=== PATIENT | male | born 1965 | race Caucasian/White ===

== ENCOUNTER 2021-12-26 13:02 | Inpatient (IN) ==
[2021-12-26] MEDS ORDERED: Isovue-370 500 ML BOTTLE IVP ONE (13:11)
[2021-12-26 13:29] LABS: Hematocrit 48.1 % (37.5-50.1); Hemoglobin 16.9 g/dL (12.9-16.9); Mean Corpuscular HGB Conc 35.1 g/dL (31.6-35.5); Mean Corpuscular Hemoglobin 29.9 pg (28.0-33.3); Mean Platelet Volume 9.6 fL (9.4-12.4); Platelet Count 220 K/mcL (140-400); Red Blood Count 5.66 M/mcL (4.19-5.50); Red Cell Distribution Width 13.9 % (11.5-14.5); White Blood Count 8.4 K/mcL (4.3-11.1)
[2021-12-26 13:33] LABS: Prothrombin Time 11.2 Seconds (9.4-12.1)
[2021-12-26 13:36] LABS: Activated Partial Thrombo Time 34.6 Seconds (26.0-36.0)
[2021-12-26 13:54] LABS: BUN/Creatinine Ratio 21 (6-26); Blood Urea Nitrogen 24 mg/dL (6-20); Carbon Dioxide 24 mEq/L (23-29); Chloride 102 mEq/L (98-107); Ethanol < 10 mg/dL (Less than 10); Glucose 315 mg/dL (70-105); Osmolality,Calculated 298 (280-300); Potassium 3.4 mEq/L (3.5-5.1); Sodium 136 mEq/L (136-145); Troponin I 0.03 ng/mL (< 0.04); eGFR For African Americans > 60 (> 60); eGFR For Non-African Americans > 60 (> 60)
[2021-12-26 14:14] LABS: Bilirubin,Urine Negative (Negative); Blood,Urine Small (Negative); Clarity,Urine Clear (Clear); Color,Urine Light-Yellow (Yellow); Glucose,Urine (UA) >=1000 mg/dL (Normal); Ketones,Urine Negative (Negative); Leukocyte Esterase,Urine Negative (Negative); Nitrite,Urine Negative (Negative); PH,Urine 6.5 pH Units (5.0-8.0); Protein,Urine >=300 mg/dL (Neg-Trace); RBC,Urine 0-3 per hpf (0-3); Specific Gravity,Urine 1.027 (1.010-1.025); Urobilinogen,Urine Normal (Normal); WBC,Urine 0-3 per hpf (0-3)
[2021-12-26] MEDS ORDERED: Perflutren Lipid Microsphere 1.3 ML in 0.9 % Sodium Chloride 8.7 ML IVP PRN (17:40)
[2021-12-26] MEDS ORDERED: Acetaminophen 325 MG TABLET PO PRN (17:44)
[2021-12-26] MEDS ORDERED: Naloxone 0.4 MG/ML INJ IVP PRN (17:44)
[2021-12-26] MEDS ORDERED: Melatonin 3 MG TABLET PO PRN (17:44)
[2021-12-26] MEDS ORDERED: Ondansetron 4 MG/2 ML VIAL IVP PRN (17:44)
[2021-12-26] MEDS ORDERED: *HR* Labetalol 20 MG/4 ML SYRINGE IVP PRN (17:49)
[2021-12-26] MEDS ORDERED: D5% in Water 1,000 ML IVC PRN (17:51)
[2021-12-26] MEDS ORDERED: *HR* Dextrose 50 % in Water (Syg) 50 ML SYRINGE IVP PRN (17:51)
[2021-12-26] MEDS ORDERED: Dextrose 4 GM Chewable Tablets PO PRN ×2 (17:51)
[2021-12-26] MEDS ORDERED: Potassium Chloride Elixir 20 MEQ/15 ML UDC PO ONE ×2 (17:57→20:45)
[2021-12-26] MEDS: Insulin LISPRO 300 UNITS/3 ML VIAL SUBQ SCH (20:55)
[2021-12-27 02:33] LABS: Prothrombin Time 11.5 Seconds (9.4-12.1)
[2021-12-27 02:42] LABS: Magnesium 1.5 mg/dL (1.6-2.6); Phosphorous 2.9 mg/dL (2.7-4.5)
[2021-12-27 02:55] LABS: Thyroid Stimulating Hormone 2.64 mcIU/mL (0.340-5.600)
[2021-12-27 03:00] LABS: Estimated Average Glucose 272 mg/dl; Hemoglobin A1C 11.1 %
[2021-12-27 03:05] LABS: Folate 16.6 ng/mL (3.0-16.0)
[2021-12-27 03:23] LABS: Alanine Aminotransferase 25 Units/L (7-52); Albumin 3.3 g/dL (3.5-5.7); Albumin/Globulin Ratio 1.5 (1.1-2.2); Alkaline Phosphatase 57 Units/L (34-104); Aspartate Amino Transferase 19 Units/L (13-39); BUN/Creatinine Ratio 18 (6-26); Bilirubin,Total 0.5 mg/dL (0.3-1.0); Blood Urea Nitrogen 21 mg/dL (6-20); Calcium 8.6 mg/dL (8.6-10.3); Carbon Dioxide 25 mEq/L (23-29); Chloride 105 mEq/L (98-107); Chol/HDL Ratio 4.2 (0-4.9); Cholesterol 127 mg/dL (< 200); Globulin 2.2 g/dL (2.4-3.5); Glucose 189 mg/dL (70-105); HDL Cholesterol 30 mg/dL (40-59); LDL Cholesterol,Calculated 42 mg/dL (< 100); Osmolality,Calculated 292 (280-300); Potassium 3.4 mEq/L (3.5-5.1); Sodium 137 mEq/L (136-145); Total Protein 5.5 g/dL (6.4-8.9); Triglycerides 275 mg/dL (< 150); Troponin I 0.04 ng/mL (< 0.04); eGFR For African Americans > 60 (> 60); eGFR For Non-African Americans > 60 (> 60)
[2021-12-27] MEDS ORDERED: Potassium Chloride Elixir 20 MEQ/15 ML UDC PO ONE (07:17)
[2021-12-27] MEDS: Aspirin Enteric Coated 81 MG Tablet PO SCH (07:39)
[2021-12-27] MEDS: Insulin LISPRO 300 UNITS/3 ML VIAL SUBQ SCH ×4 (07:45→20:05)
[2021-12-27 10:09] LABS: Amphetamine Screen,Urine Negative ng/mL (Cutoff=1000); Barbiturate Screen,Urine Negative ng/mL (Cutoff=200); Benzodiazepines Screen,Urine Negative ng/mL (Cutoff=200); Cannabinoid Screen,Urine Negative ng/mL (Cutoff = 50); Cocaine Screen,Urine Negative ng/mL (Cutoff= 300); Opiate Screen,Urine Negative ng/mL (Cutoff=300); Phencyclidine Screen,Urine Negative ng/mL (Cutoff=25)
[2021-12-27] MEDS: Desvenlafaxine [Desvenlafaxine Er] 50 MG Tab.Er.24h PO SCH (12:15)
[2021-12-28 03:40] LABS: BUN/Creatinine Ratio 15 (6-26); Blood Urea Nitrogen 18 mg/dL (6-20); Calcium 8.4 mg/dL (8.6-10.3); Carbon Dioxide 27 mEq/L (23-29); Chloride 104 mEq/L (98-107); Glucose 209 mg/dL (70-105); Magnesium 1.8 mg/dL (1.6-2.6); Osmolality,Calculated 292 (280-300); Potassium 3.4 mEq/L (3.5-5.1); Sodium 137 mEq/L (136-145); eGFR For African Americans > 60 (> 60); eGFR For Non-African Americans > 60 (> 60)
[2021-12-28] MEDS: Magnesium Oxide 400 MG TABLET PO SCH (08:04)
[2021-12-28] MEDS: Aspirin Enteric Coated 81 MG Tablet PO SCH (08:04)
[2021-12-28] MEDS: Insulin LISPRO 300 UNITS/3 ML VIAL SUBQ SCH ×4 (08:05→20:27)
[2021-12-28] MEDS: Desvenlafaxine [Desvenlafaxine Er] 50 MG Tab.Er.24h PO SCH (08:08)
[2021-12-28] MEDS: Valsartan 80 MG TABLET PO SCH (08:13)
[2021-12-28] MEDS ORDERED: Insulin DETEMIR 100 UNIT/ML X5UNITS SUBQ SCH (09:00)
[2021-12-28] MEDS: carvediloL 6.25 MG TABLET PO SCH (17:11)
[2021-12-28] MEDS: Insulin DETEMIR 100 UNIT/ML X5UNITS SUBQ SCH (20:27)
[2021-12-29 02:24] LABS: BUN/Creatinine Ratio 20 (6-26); Blood Urea Nitrogen 26 mg/dL (6-20); Calcium 8.7 mg/dL (8.6-10.3); Carbon Dioxide 24 mEq/L (23-29); Chloride 103 mEq/L (98-107); Glucose 212 mg/dL (70-105); Magnesium 1.8 mg/dL (1.6-2.6); Osmolality,Calculated 291 (280-300); Potassium 3.3 mEq/L (3.5-5.1); Sodium 135 mEq/L (136-145); eGFR For African Americans > 60 (> 60); eGFR For Non-African Americans 56 (> 60)
[2021-12-29] MEDS: Aspirin Enteric Coated 81 MG Tablet PO SCH (07:29)
[2021-12-29] MEDS: Magnesium Oxide 400 MG TABLET PO SCH (07:29)
[2021-12-29] MEDS: Valsartan 80 MG TABLET PO SCH ×2 (07:30→07:41)
[2021-12-29] MEDS: carvediloL 6.25 MG TABLET PO SCH (07:30)
[2021-12-29] MEDS: Desvenlafaxine [Desvenlafaxine Er] 50 MG Tab.Er.24h PO SCH (07:30)
[2021-12-29] MEDS: Insulin DETEMIR 100 UNIT/ML X5UNITS SUBQ SCH (07:32)
[2021-12-29] MEDS ORDERED: Valsartan 80 MG TABLET PO ONE (07:38)
[2021-12-29] MEDS ORDERED: Insulin DETEMIR 100 UNIT/ML X5UNITS SUBQ ONE (07:55)
[2021-12-29] MEDS: amLODIPine 5 MG TABLET PO SCH (08:28)
[2021-12-29] MEDS: Insulin LISPRO 300 UNITS/3 ML VIAL SUBQ SCH ×4 (08:29→20:01)
[2021-12-29] MEDS ORDERED: carvediloL 6.25 MG TABLET PO ONE (11:44)
[2021-12-29] MEDS: *HR* GlipiZIDE XL (24 HR) 10 MG TABLET PO SCH ×2 (12:22→16:54)
[2021-12-29] MEDS: carvediloL 25 MG TABLET PO SCH (16:57)
[2021-12-29] MEDS ORDERED: *HR* GlipiZIDE XL (24 HR) 10 MG TABLET PO SCH (21:00)
[2021-12-30 03:22] LABS: Calcium 8.9 mg/dL (8.6-10.3); Potassium 3.3 mEq/L (3.5-5.1)
[2021-12-30] MEDS: Aspirin Enteric Coated 81 MG Tablet PO SCH (07:42)
[2021-12-30] MEDS: hydrALAZINE 25 MG TABLET PO SCH ×3 (07:42→20:38)
[2021-12-30] MEDS: *HR* GlipiZIDE XL (24 HR) 10 MG TABLET PO SCH ×2 (07:42→16:45)
[2021-12-30] MEDS: carvediloL 25 MG TABLET PO SCH ×2 (07:42→16:45)
[2021-12-30] MEDS: Magnesium Oxide 400 MG TABLET PO SCH (07:42)
[2021-12-30] MEDS: amLODIPine 5 MG TABLET PO SCH (07:42)
[2021-12-30] MEDS: Valsartan 80 MG TABLET PO SCH (07:45)
[2021-12-30] MEDS: Desvenlafaxine [Desvenlafaxine Er] 50 MG Tab.Er.24h PO SCH (07:46)
[2021-12-30] MEDS: *HR* Metformin 500 MG TABLET PO SCH ×2 (08:52→16:45)
[2021-12-30] MEDS: Insulin LISPRO 300 UNITS/3 ML VIAL SUBQ SCH ×4 (09:01→20:27)
[2021-12-30] MEDS: Insulin DETEMIR 100 UNIT/ML X5UNITS SUBQ SCH (09:50)
[2021-12-31 05:46] LABS: BUN/Creatinine Ratio 29 (6-26); Blood Urea Nitrogen 36 mg/dL (6-20); Calcium 8.8 mg/dL (8.6-10.3); Carbon Dioxide 24 mEq/L (23-29); Chloride 106 mEq/L (98-107); Glucose 213 mg/dL (70-105); Osmolality,Calculated 299 (280-300); Potassium 3.5 mEq/L (3.5-5.1); Sodium 137 mEq/L (136-145); eGFR For African Americans > 60 (> 60); eGFR For Non-African Americans 59 (> 60)
[2021-12-31] MEDS: amLODIPine 5 MG TABLET PO SCH (08:19)
[2021-12-31] MEDS: Aspirin Enteric Coated 81 MG Tablet PO SCH (08:19)
[2021-12-31] MEDS: Valsartan 80 MG TABLET PO SCH (08:20)
[2021-12-31] MEDS: hydrALAZINE 25 MG TABLET PO SCH ×3 (08:20→20:46)
[2021-12-31] MEDS: carvediloL 25 MG TABLET PO SCH ×2 (08:20→16:30)
[2021-12-31] MEDS: Magnesium Oxide 400 MG TABLET PO SCH (08:21)
[2021-12-31] MEDS: *HR* GlipiZIDE XL (24 HR) 10 MG TABLET PO SCH ×2 (08:21→16:44)
[2021-12-31] MEDS: *HR* Metformin 500 MG TABLET PO SCH ×2 (08:21→16:30)
[2021-12-31] MEDS: Desvenlafaxine [Desvenlafaxine Er] 50 MG Tab.Er.24h PO SCH (08:22)
[2021-12-31] MEDS: Insulin LISPRO 300 UNITS/3 ML VIAL SUBQ SCH ×4 (08:23→19:15)
[2021-12-31] MEDS: Insulin DETEMIR 100 UNIT/ML X5UNITS SUBQ SCH (08:28)
[2022-01-01 07:02] LABS: Basophils % 0.3 %; Eosinophils # 0.1 K/mcL (0.0-0.6); Eosinophils % 1.5 %; Hemoglobin 15.3 g/dL (12.9-16.9); Immature Granulocytes % 0.5 % (0-4); Lymphocytes # 1.5 K/mcL (0.6-4.6); Lymphocytes % 19.7 %; Mean Corpuscular HGB Conc 34.8 g/dL (31.6-35.5); Mean Corpuscular Hemoglobin 29.8 pg (28.0-33.3); Mean Corpuscular Volume 85.8 fL (83.0-100.0); Mean Platelet Volume 10.3 fL (9.4-12.4); Monocytes # 0.6 K/mcL (0.0-1.3); Monocytes % 7.3 %; Neutrophils # 5.5 K/mcL (1.6-8.9); Platelet Count 207 K/mcL (140-400); Red Blood Count 5.13 M/mcL (4.19-5.50); Red Cell Distribution Width 14.1 % (11.5-14.5); Segmented Neutrophils % 70.7 %; White Blood Count 7.8 K/mcL (4.3-11.1)
[2022-01-01 07:17] LABS: BUN/Creatinine Ratio 26 (6-26); Blood Urea Nitrogen 30 mg/dL (6-20); Calcium 9.1 mg/dL (8.6-10.3); Carbon Dioxide 24 mEq/L (23-29); Chloride 106 mEq/L (98-107); Glucose 194 mg/dL (70-105); Osmolality,Calculated 297 (280-300); Potassium 3.6 mEq/L (3.5-5.1); Sodium 138 mEq/L (136-145); eGFR For African Americans > 60 (> 60); eGFR For Non-African Americans > 60 (> 60)
[2022-01-01] MEDS: amLODIPine 5 MG TABLET PO SCH (08:23)
[2022-01-01] MEDS: Aspirin Enteric Coated 81 MG Tablet PO SCH (08:24)
[2022-01-01] MEDS: *HR* Metformin 500 MG TABLET PO SCH ×2 (08:24→16:28)
[2022-01-01] MEDS: Magnesium Oxide 400 MG TABLET PO SCH (08:24)
[2022-01-01] MEDS: hydrALAZINE 25 MG TABLET PO SCH ×3 (08:24→21:02)
[2022-01-01] MEDS: *HR* GlipiZIDE XL (24 HR) 10 MG TABLET PO SCH ×2 (08:25→16:28)
[2022-01-01] MEDS: Desvenlafaxine [Desvenlafaxine Er] 50 MG Tab.Er.24h PO SCH (08:25)
[2022-01-01] MEDS: carvediloL 25 MG TABLET PO SCH ×2 (08:25→16:28)
[2022-01-01] MEDS: Insulin LISPRO 300 UNITS/3 ML VIAL SUBQ SCH ×4 (08:28→20:40)
[2022-01-01] MEDS: Valsartan 80 MG TABLET PO SCH (08:36)
[2022-01-01] MEDS: Insulin DETEMIR 100 UNIT/ML X5UNITS SUBQ SCH (08:37)
[2022-01-02] MEDS: hydrALAZINE 25 MG TABLET PO SCH ×2 (08:03→15:22)
[2022-01-02] MEDS: amLODIPine 5 MG TABLET PO SCH (08:03)
[2022-01-02] MEDS: Aspirin Enteric Coated 81 MG Tablet PO SCH (08:03)
[2022-01-02] MEDS: *HR* Metformin 500 MG TABLET PO SCH (08:04)
[2022-01-02] MEDS: Valsartan 80 MG TABLET PO SCH (08:04)
[2022-01-02] MEDS: Desvenlafaxine [Desvenlafaxine Er] 50 MG Tab.Er.24h PO SCH (08:04)
[2022-01-02] MEDS: carvediloL 25 MG TABLET PO SCH ×2 (08:04→15:22)
[2022-01-02] MEDS: *HR* GlipiZIDE XL (24 HR) 10 MG TABLET PO SCH (08:05)
[2022-01-02] MEDS: Insulin DETEMIR 100 UNIT/ML X5UNITS SUBQ SCH (08:09)
[2022-01-02] MEDS: Insulin LISPRO 300 UNITS/3 ML VIAL SUBQ SCH (08:10)
[2022-01-02 10:57] VITALS: BP 173/93; PULSE 67; TEMP 97.6; O2SAT 96
== END 2022-01-02 13:50 | disposition home or self-care (01) | DRG 64 ==
LOC: 3BNU 13:02 → EMEROOARM 13:02 → SUATTDRO 16:20 → 3BNU 17:32 → SUATTDRO 12-27 13:16
PROVIDERS: ADMIT Hospitalist; ATTEND General Practice

== ENCOUNTER 2022-01-30 21:53 | Inpatient (IN) ==
[2022-01-30] MEDS ORDERED: Alteplase 100 MG/100 mL Vial Pharmacy Waste ONE (22:00)
[2022-01-30] MEDS ORDERED: EPINEPHrine 1 MG/ML VIAL ONE (22:06)
[2022-01-30] MEDS ORDERED: D5% in Water 250 ML ONE (22:06)
[2022-01-30] MEDS ORDERED: *HR* EPINEPHrine 1 MG/10 ML SYRINGE ONE (22:17)
[2022-01-30] MEDS ORDERED: LOK IVPB ONE (22:23)
[2022-01-30] MEDS ORDERED: ALTEPLASE IVPB ONE (22:23)
[2022-01-30] MEDS ORDERED: 0.9 % Sodium Chloride 1,000 ML IVC ONE (22:35)
[2022-01-30 23:09] LABS: INR 1.1; Prothrombin Time 12.2 Seconds (9.4-12.1)
[2022-01-30 23:13] LABS: ABG Base Excess -20 mEq/L (-2 to 3); ABG HCO3 15 mEq/L (21-27); ABG Oxygen Saturation 92 % (95-98); ABG PCO2 76 mmHg (35-45); ABG PH 6.89 pH Units (7.32-7.45); ABG PO2 107 mmHg (85-104); ABG TCO2 17 mEq/L (20-26); Blood Gas VT 600 cc
[2022-01-30] MEDS ORDERED: EPINEPHrine 5 MG in D5% in Water 250 ML IVC SCH (23:15)
[2022-01-30 23:22] LABS: Albumin 3.2 g/dL (3.5-5.7); Albumin/Globulin Ratio 1.3 (1.1-2.2); Bilirubin,Total 0.4 mg/dL (0.3-1.0); Calcium 9.3 mg/dL (8.6-10.3); Globulin 2.4 g/dL (2.4-3.5); Potassium 4.3 mEq/L (3.5-5.1); Total Protein 5.6 g/dL (6.4-8.9)
[2022-01-30 23:25] LABS: Bilirubin,Urine Negative (Negative); Blood,Urine Small (Negative); Clarity,Urine Clear (Clear); Color,Urine Light-Yellow (Yellow); Glucose,Urine (UA) 70 mg/dL (Normal); Ketones,Urine Negative (Negative); Leukocyte Esterase,Urine Negative (Negative); Mucus,Urine Few per lpf (None-Few); Nitrite,Urine Negative (Negative); PH,Urine 7.5 pH Units (5.0-8.0); Protein,Urine >=600 mg/dL (Neg-Trace); RBC,Urine 0-3 per hpf (0-3); Specific Gravity,Urine 1.019 (1.010-1.025); Squamous Epithelial Cell,Urine Few per hpf (None-Few); Urobilinogen,Urine Normal (Normal); WBC,Urine 0-3 per hpf (0-3)
[2022-01-30 23:43] LABS: Nucleated Red Blood Cells 0.2 /100 WBC (0)
[2022-01-30 23:44] LABS: Hematocrit 43.3 % (37.5-50.1); Hemoglobin 14.5 g/dL (12.9-16.9); Mean Corpuscular HGB Conc 33.5 g/dL (31.6-35.5); Mean Corpuscular Hemoglobin 30.3 pg (28.0-33.3); Mean Corpuscular Volume 90.6 fL (83.0-100.0); Platelet Count 274 K/mcL (140-400); Red Blood Count 4.78 M/mcL (4.19-5.50); Red Cell Distribution Width 14.4 % (11.5-14.5); White Blood Count 29.4 K/mcL (4.3-11.1)
[2022-01-30] MEDS ORDERED: FentaNYL (PF) 1,000 MCG/100 ML IV.SOLN IVC SCH (23:45)
[2022-01-30] MEDS ORDERED: *HR* FentaNYL (PF) 100 MCG/2 ML VIAL IVP ONE (23:49)
[2022-01-30] MEDS ORDERED: *HR* FentaNYL (PF) 100 MCG/2 ML VIAL ONE (23:49)
[2022-01-31 00:34] LABS: Eosinophils # 1.2 K/mcL (0.0-0.6); Lymphocytes # 11.2 K/mcL (0.6-4.6); Monocytes # 1.2 K/mcL (0.0-1.3); Neutrophils # 15.9 K/mcL (1.6-8.9)
[2022-01-31 01:44] LABS: ABG Base Excess -7 mEq/L (-2 to 3); ABG HCO3 18 mEq/L (21-27); ABG Oxygen Saturation 100 % (95-98); ABG PCO2 31 mmHg (35-45); ABG PH 7.36 pH Units (7.32-7.45); ABG PO2 565 mmHg (85-104); ABG TCO2 19 mEq/L (20-26); Blood Gas VT 600 cc
[2022-01-31 01:52] LABS: Amphetamine Screen,Urine Negative ng/mL (Cutoff=1000); Barbiturate Screen,Urine Negative ng/mL (Cutoff=200); Benzodiazepines Screen,Urine Negative ng/mL (Cutoff=200); Cannabinoid Screen,Urine Negative ng/mL (Cutoff = 50); Cocaine Screen,Urine Negative ng/mL (Cutoff= 300); Opiate Screen,Urine Negative ng/mL (Cutoff=300); Phencyclidine Screen,Urine Negative ng/mL (Cutoff=25)
[2022-01-31] MEDS ORDERED: Naloxone 0.4 MG/ML INJ IVP PRN (02:51)
[2022-01-31] MEDS ORDERED: Melatonin 3 MG TABLET PO PRN (02:51)
[2022-01-31] MEDS ORDERED: Vancomycin 1,750 MG in 0.9 % Sodium Chloride 250 ML IVPB SCH (03:00)
[2022-01-31] MEDS ORDERED: Piperacillin/Tazobactam 3.375 GM in 0.9 % Sodium Chloride Mini Bag 100 ML IVPB SCH (03:00)
[2022-01-31] MEDS ORDERED: *HR* Dextrose 50 % in Water (Syg) 50 ML SYRINGE IVP PRN (03:07)
[2022-01-31] MEDS ORDERED: D5% in Water 1,000 ML IVC PRN (03:07)
[2022-01-31] MEDS ORDERED: Dextrose 4 GM Chewable Tablets PO PRN ×2 (03:07)
[2022-01-31] MEDS ORDERED: *HR* LORazepam 2 MG/ML VIAL IVP PRN (03:54)
[2022-01-31] MEDS ORDERED: Artificial Tears SOLN 15 ML BOTTLE BOTH EYES SCH (04:00)
[2022-01-31] MEDS ORDERED: Vancomycin 2,000 MG/520 ML IV.SOLN IVPB ONE (04:00)
[2022-01-31] MEDS ORDERED: Artificial Tears SOLN 15 ML BOTTLE BOTH EYES PRN (04:00)
[2022-01-31] MEDS ORDERED: Pantoprazole 40 MG VIAL IVP SCH ×2 (04:15→06:00)
[2022-01-31 04:46] LABS: ABG Base Excess -8 mEq/L (-2 to 3); ABG HCO3 16 mEq/L (21-27); ABG Oxygen Saturation 99 % (95-98); ABG PCO2 27 mmHg (35-45); ABG PH 7.37 pH Units (7.32-7.45); ABG PO2 122 mmHg (85-104); ABG TCO2 16 mEq/L (20-26); Blood Gas VT 600 cc
[2022-01-31] MEDS: Insulin LISPRO 300 UNITS/3 ML VIAL SUBQ SCH ×2 (04:54→05:29)
[2022-01-31 05:16] LABS: Lymphocytes % 2.7 %; Mean Platelet Volume 9.8 fL (9.4-12.4); Nucleated Red Blood Cells 0.1 /100 WBC (0)
[2022-01-31 05:18] LABS: Basophils # 0.2 K/mcL (0.0-0.2); Basophils % 0.5 %; Hematocrit 46.8 % (37.5-50.1); Hemoglobin 15.6 g/dL (12.9-16.9); Immature Granulocytes % 1.7 % (0-4); Lymphocytes # 0.9 K/mcL (0.6-4.6); Mean Corpuscular HGB Conc 33.3 g/dL (31.6-35.5); Mean Corpuscular Hemoglobin 30.1 pg (28.0-33.3); Mean Corpuscular Volume 90.3 fL (83.0-100.0); Monocytes # 2.4 K/mcL (0.0-1.3); Monocytes % 7.3 %; Platelet Count 271 K/mcL (140-400); Red Blood Count 5.18 M/mcL (4.19-5.50); Red Cell Distribution Width 14.5 % (11.5-14.5); Segmented Neutrophils % 87.8 %
[2022-01-31 05:20] LABS: Neutrophils # 29.2 K/mcL (1.6-8.9); White Blood Count 33.3 K/mcL (4.3-11.1)
[2022-01-31 05:21] VITALS: TEMP 99.4
[2022-01-31 05:23] LABS: INR 1.4; Prothrombin Time 15.9 Seconds (9.4-12.1)
[2022-01-31 05:26] LABS: Activated Partial Thrombo Time 37.1 Seconds (26.0-36.0)
[2022-01-31 05:52] LABS: Albumin 3.6 g/dL (3.5-5.7); Albumin/Globulin Ratio 1.5 (1.1-2.2); Bilirubin,Total 0.7 mg/dL (0.3-1.0); Calcium 8.7 mg/dL (8.6-10.3); Globulin 2.4 g/dL (2.4-3.5); Magnesium 1.7 mg/dL (1.6-2.6); Phosphorous 7.7 mg/dL (2.7-4.5); Potassium 5.1 mEq/L (3.5-5.1); Troponin I 0.62 ng/mL (< 0.04)
[2022-01-31 05:59] LABS: Platelet Estimate Normal (Normal); Smudge Cells Present (Not Present)
[2022-01-31] MEDS ORDERED: Insulin LISPRO 300 UNITS/3 ML VIAL SUBQ SCH (06:00)
[2022-01-31 07:41] VITALS: PULSE 88
[2022-01-31] MEDS ORDERED: Norepinephrine 4 MG/254 ML IV.SOLN IVC SCH (07:45)
[2022-01-31 07:51] VITALS: BP 50/40; O2SAT 92
[2022-01-31 07:52] LABS: Adenovirus Not Detected (Not Detect); Bordetella Pertussis Not Detected (Not Detect); Chlamydophila pneumoniae Not Detected (Not Detect); Coronavirus 229E Not Detected (Not Detect); Coronavirus HKU1 Not Detected (Not Detect); Coronavirus NL63 Not Detected (Not Detect); Coronavirus OC43 Not Detected (Not Detect); Human Metapneumovirus Not Detected (Not Detect); Human Rhinovirus/Enterovirus Not Detected (Not Detect); Influenza A Subtype 2009 H1 Not Detected (Not Detect); Influenza B Not Detected (Not Detect); Mycoplasma pneumoniae Not Detected (Not Detect); Parainfluenza Virus 1 Not Detected (Not Detect); Parainfluenza Virus 2 Not Detected (Not Detect); Parainfluenza Virus 3 Not Detected (Not Detect); Parainfluenza Virus 4 Not Detected (Not Detect); Respiratory Syncytial Virus Not Detected (Not Detect); SARS-CoV-2 Not Detected (Not Detect)
[2022-01-31] MEDS ORDERED: *HR* Atropine Sulfate 1 MG/10 ML SYRINGE ONE (07:52)
[2022-01-31] MEDS ORDERED: *HR* EPINEPHrine 1 MG/10 ML SYRINGE IVP ONE ×2 (08:15)
[2022-01-31] MEDS ORDERED: Chlorhexidine Rinse 15 ML MOUTHWASH MM SCH (09:00)
[2022-01-31] MEDS ORDERED: Furosemide 40 MG/4 ML VIAL IVP SCH (09:00)
[2022-02-01] MEDS ORDERED: Vancomycin 1,750 MG/517.5 ML IV.SOLN IVPB SCH (04:00)
== END 2022-01-31 08:16 | disposition expired | DRG 61 ==
LOC: EMEROOARM 21:53 → ICNU 21:53
PROVIDERS: ADMIT Internal Medicine; ATTEND Internal Medicine